=== PATIENT | female | born 1945 | race Caucasian/White ===

== ENCOUNTER 2022-09-25 19:26 | Emergency (ER) | payer MEDICARE, BC ==
--- NOTE | 2022-09-25 19:43 | NUR ---
UPON APPROACHING THE PT, SHE STATES THAT I WANT TO GO HOME. PT DOES NOT EVEN WANT TO BE TRIAGED NOR BE SEEN BY THE MD. 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 PT AMBULATED ON STEADY GAIT.
== END 2022-09-25 19:47 | disposition left against medical advice (07) ==
LOC: ER 19:35
DX: Z53.21 Procedure and treatment not carried out due to patient leaving prior to being seen by health care provider (principal)